=== PATIENT | male | born 1975 | race Caucasian/White ===

== ENCOUNTER 2024-04-17 16:50 | Emergency (ER) | payer OTHER, SELFPAY ==
--- NOTE | ~2024-04-17 | XR_ITS ---
EXAMINATION: XR abdomen/kub 1V DATE: 04/17/2024 17:37 INDICATION: Left groin pain TECHNIQUE: A supine view of the abdomen on 2 radiographs was obtained. COMPARISON: None. FINDINGS: Normal bowel gas pattern with moderate amount of stool scattered throughout the colon. No dilated loo ps of gas-filled bowel to suggest obstruction. Small left sided and tiny right sided phleboliths in t he pelvis. Lung bases are clear. Heart size normal conifer AP technique. Slight lumbar dextrocurvatur e with moderate spondylosis. IMPRESSION: 1. Normal bowel gas pattern. Reviewed, dictated and finalized at location A.
[2024-04-17 16:56] VITALS: BP 113/71; PULSE 105; RESP 20; TEMP 37.3; O2SAT 98
--- NOTE | 2024-04-17 17:17 | ED.GENADULT ---
HPI - General Adult General Chief complaint: Abdominal Pain Stated complaint: left side groin pain Time Seen by Provider: 04/17/24 17:10 Source: patient, RN notes reviewed and old records reviewed Mode of arrival: ambulatory Limitations: no limitations History of Present Illness HPI narrative: 49 year old male presents to [facility] care with complaints of left sided groin pain which started yesterday evening. Patient reports that he had previous lower left inguinal hernia repair in 2007. Patient reports no difficulty with urination or an problems with bowel movements, states last bowel movement this afternoon and normal. Patient denies any known injury. He works as [employer] and does lift heavy object at work.Patient has noted pain to the left lower abdominal quadrant in left upper groin region, no bulging noted in area on examination. MD complaint: left groin pain Onset (ago): day(s) (started yesterday evening) Location: pelvis (left lower abdomen and groin) Severity: mild Treatments prior to arrival: none Related Data Home Medications Medication Instructions Recorded Confirmed No Home Medications 04/17/24 04/17/24 Allergies Allergy/AdvReac Type Severity Reaction Status Date / Time No Known Drug Allergies Allergy Unknown Unknown Verified 04/17/24 17:21 Review of Systems Review of Systems: CONSTITUTIONAL: Denies fever, chills, or sweats. EYES: Denies visual changes, redness, or discharge. ENT: Denies rhinorrhea, congestion, sore throat, or otalgia. CARDIOVASCULAR: Denies chest pain, palpitations, or edema. RESPIRATORY: Denies cough or dyspnea. GASTROINTESTINAL: Reports pain in left lower abdomen in left upper groin area, no nausea, vomiting, or diarrhea. GENITOURINARY: Denies dysuria or hematuria. SKIN: Denies rash or itching. MUSCULOSKELETAL: Denies any acute back pain, joint pain, or myalgia. NEUROLOGIC: Denies headache, numbness, or weakness. PSYCHIATRIC: Denies anxiety or depression. All systems reviewed & are unremarkable except as noted in HPI and below [facility] Past Medical History Medical History (Updated 04/19/24 @ 07:50 by Loren Chun NP) Back pain Bilateral varicoceles Epididymitis GERD (gastroesophageal reflux disease) Pneumonia LLL 2011 Surgical History Surgical History (Updated 04/19/24 @ 07:48 by Loren Chun NP) H/O left inguinal hernia repair History of arthroscopy of left shoulder Social History Social History (Updated 04/19/24 @ 07:46 by Loren Chun NP) Smoking packs per day: 1 Smoking cigarettes per day: 20.0 Smoking status: Current every day smoker Tobacco type: cigarettes Alcohol intake: current Alcohol use details: social Substance use type: does not use Living arrangements: with family Additional occupation/education comments: [employer] Gender identity (if verbalized by the patient): Male Comments At time of signature, agree with nursing past medical, surgical, social and family history. There is no relevant family history pertinent to the presenting complaint Exam Narrative: GENERAL: Well-appearing, well-nourished, and in no acute distress. HEAD: Normocephalic, atraumatic. EYES: PERRLA and EOMI. ENT: Nares clear, no rhinorrhea or epistaxis. Mucous membranes moist. NECK: Supple.no lymphadenopathy CHEST: Clear to auscultation. No respiratory distress. no cough noted SAO2 98% on room air HEART: Regular rate and rhythm. No murmur heard. Normal peripheral pulses. ABDOMEN: Soft, tender on palpation to left lower abdomen upper groin region with no bulging noted in area, nondistended, normal active bowel sounds, no difficulty passing urine or stools EXTREMITIES: Normal range of motion. No edema. SKIN: Warm, dry, no rash. NEURO: No focal deficits. Alert and oriented x3. Course Course Emergency Course: Patient is aware of diagnosis, understands and agrees to treatment plan.? Anticipatory guidance given.? Patient agrees to follow-up a
== END 2024-04-17 18:30 | disposition home or self-care (01) ==
PROVIDERS: Emergency Provider Registered Nurse
DX: R10.32 Left lower quadrant pain (principal); F17.210 Nicotine dependence, cigarettes, uncomplicated; K21.9 Gastro-esophageal reflux disease without esophagitis
CPT/HCPCS: 74018; 99213; G0463

== ENCOUNTER 2024-09-17 03:38 | Day surgery (SDC) | payer OTHER, SELFPAY ==
[2024-09-04 14:51] VITALS: BMI 33.1
[2024-09-17 08:19] VITALS: BP 141/83; PULSE 90; RESP 20; TEMP 35.5; O2SAT 100; BMI 33.5
[2024-09-17] MEDS: LACTATED RINGERS 1,000 ML 150 ML IV CONT (08:28)
--- NOTE | 2024-09-17 09:12 | PM.IMHP ---
H&P: HPI History of Present Illness Date/Time: 09/17/24 09:12 Chief Complaint: GERD - colon cancer screening Narrative: This patient has been suffering from heartburn for several years, he is currently taking Nexium every morning. Despite going to bed at least 4 hours after his last meal, he frequently has nighttime episodes of regurgitation and heartburn. There is no dysphagia. This occurs at least 3 times a week. He has never had an endoscopy. In addition, he is also here for his 1st screening colonoscopy. There is no family history of colorectal cancer. Review of Systems Review of Systems: All systems reviewed & are unremarkable except as noted in HPI and below PMFSH Past Medical History Medical History (Updated 09/17/24 @ 09:15 by Mack San MD) Back pain Bilateral varicoceles Epididymitis GERD (gastroesophageal reflux disease) Pneumonia LLL 2011 Surgical History Surgical History (Updated 04/19/24 @ 07:48 by Loren Chun NP) H/O left inguinal hernia repair History of arthroscopy of left shoulder Social History Social History (Updated 04/19/24 @ 07:46 by Loren Chun NP) Smoking packs per day: 1 Smoking cigarettes per day: 20.0 Years smoked: 40 Smoking pack-years: 40.00 Smoking status: Current every day smoker Tobacco type: cigarettes Alcohol intake: never Alcohol use details: social Substance use: never Substance use type: does not use Living arrangements: with family Additional occupation/education comments: [employer] Gender identity (if verbalized by the patient): Male Spiritual care concerns: No Meds Home Medications and Allergies Home Medications Medication Instructions Recorded Confirmed Type calcium carbonate (Tums) 200 mg PO HS 09/17/24 09/17/24 History esomeprazole magnesium 20 mg 20 mg PO DAILY 09/17/24 09/17/24 History capsule,delayed release (Nexium) Allergies Allergy/AdvReac Type Severity Reaction Status Date / Time No Known Drug Allergies Allergy Unknown Unknown Verified 09/17/24 08:17 Vital Signs Vital Signs - 24 hr 09/17/24 08:19 Temperature 96 F L Pulse Rate 90 Respiratory Rate 20 Blood Pressure 141/83 H Pulse Oximetry 100 Oxygen Delivery Room Air Assessment and Plan Assessment and plan (1) Screening for malignant neoplasm of colon: Code(s): Z12.11 - Encounter for screening for malignant neoplasm of colon Status: Acute Plan The patient is deemed a good candidate for the procedures, EGD and colonoscopy . Consent signed. Will proceed.
--- NOTE | 2024-09-17 09:30 | SUR.PREOP ---
Spoke at length with the office and the patient in regards to insurance giving approval for the EGD. The office RAYMOND Mann stated that the EGD is covered and we are okay to proceed with procedure.
--- NOTE | 2024-09-17 09:52 | P.PNAN_ITS ---
Anes - Initial Pre Proc Eval Procedure: Operation Date: 09/17/24 09:30 Proposed Procedures p Screening Colonoscopy - Mack San MD s Esophagogastroduodenoscopy - Mack San MD Date/Time: 09/17/24 09:52 Surgeon: Mack San MD Pre Op Diagnosis: Neoplasm Screening Patient Data Age: 49 Gender: M Height: 1.85 m Weight: 115.1 kg Last Vital Signs Temp 96 F L 09/17/24 08:19 Pulse 90 09/17/24 08:19 Resp 20 09/17/24 08:19 BP 141/83 H 09/17/24 08:19 Pulse Ox 100 09/17/24 08:19 O2 Del Method Room Air 09/17/24 08:19 Allergies Allergy/AdvReac Type Severity Reaction Status Date / Time No Known Drug Allergies Allergy Unknown Unknown Verified 09/17/24 08:17 Home Medications Medication Instructions Recorded Confirmed Type calcium carbonate (Tums) 200 mg PO HS 09/17/24 09/17/24 History esomeprazole magnesium 20 mg 20 mg PO DAILY 09/17/24 09/17/24 History capsule,delayed release (Nexium) Patient hx anesthesia problems: none Family hx anesthesia problems: none Results Review: All pre-operative results and documents have been reviewed as part of the pre- operative evaluation. [facility] Past Medical History Medical History Back pain Bilateral varicoceles Epididymitis GERD (gastroesophageal reflux disease) Pneumonia LLL 2011 Surgical History Surgical History H/O left inguinal hernia repair History of arthroscopy of left shoulder Social History Social History Smoking packs per day: 1 Smoking cigarettes per day: 20.0 Years smoked: 40 Smoking pack-years: 40.00 Smoking status: Current every day smoker Tobacco type: cigarettes Alcohol intake: never Alcohol use details: social Substance use: never Substance use type: does not use Living arrangements: with family Additional occupation/education comments: [employer] Gender identity (if verbalized by the patient): Male Spiritual care concerns: No Anes - Eval Final PreProcedure Day of Procedure 09/17/24 09:52 Patient weight: normal Heart: regular rate and rhythm Lungs: clear to auscultation Airway: Mallampati scale Neurological: alert and oriented Last oral intake: >/= 8 hours ASA classification: II Emergent: no Anesthetic plan: proceed Anesthesia type and monitoring: general GIVS and standard monitoring Results Review: All pre-operative results and documents have been reviewed as part of the pre- operative evaluation. Smoker 1ppd, smoked approx 8-9 am . Informed Consent: The patient's anesthetic plan and its attendant risks and benefits were discussed with the patient/family/POA. Questions were solicited and answers provided to the satisfaction of the patient/family/POA.
--- NOTE | 2024-09-17 10:12 | SUR.OPER ---
EGD: [id number] COLON:[id number]
[2024-09-17 10:38] VITALS: BP 103/70; PULSE 81; RESP 19; O2SAT 96
[2024-09-17 10:48] VITALS: BP 134/84; PULSE 79; RESP 17; O2SAT 98
[2024-09-17 10:58] VITALS: BP 133/85; PULSE 79; RESP 21; O2SAT 98
== END 2024-09-17 11:20 | disposition home or self-care (01) ==
PROVIDERS: Visit Provider Internal Medicine Gastroenterology
PROC: 0DJD8ZZ Inspection of Lower Intestinal Tract, Via Natural or Artificial Opening Endoscopic (ICD-10-PCS; CPT 45378; principal; 2024-09-17 09:30)
PROC: 0DJ08ZZ Inspection of Upper Intestinal Tract, Via Natural or Artificial Opening Endoscopic (ICD-10-PCS; CPT 43235; 2024-09-17 09:30)
DX: Z12.11 Encounter for screening for malignant neoplasm of colon (principal); D12.2 Benign neoplasm of ascending colon; K57.30 Diverticulosis of large intestine without perforation or abscess without bleeding; K29.50 Unspecified chronic gastritis without bleeding; K44.9 Diaphragmatic hernia without obstruction or gangrene; K21.9 Gastro-esophageal reflux disease without esophagitis; F17.210 Nicotine dependence, cigarettes, uncomplicated; Z98.890 Other specified postprocedural states; Z87.438 Personal history of other diseases of male genital organs
CPT/HCPCS: 43239; 45385; 88305; J2003; J2704; J7120

== ENCOUNTER 2025-11-11 08:04 | Outpatient (CLI) | payer OTHER, SELFPAY ==
--- NOTE | ~2025-11-11 | CT_ITS ---
EXAMINATION:CT lung screening DATE: 11/11/2025 08:26 INDICATION: Screening TECHNIQUE: Computed tomography (CT) of the chest was performed without intravenous contrast. The dose-length product (DLP) was 310.68 mGy-cm. COMPARISON: None. FINDINGS: 2 mm subpleural left upper lobe anterior nodule image 38 series 4. 2 mm lateral subpleural nodule seen on image left upper lobe. 6 mm calcified granuloma in the left lung base. 2 mm calcified granuloma right lower lobe image 72. No highly suspicious nodules or masses. Centrilobular emphysematous changes in the upper lobes. Heart and great vessels appear within normal limits. No acute process seen in the visualized portions of the upper abdomen bony thorax or extrathoracic soft tissues. Diffuse degenerative changes in the thoracic spine. Para mild to moderately severe diffuse fatty infiltrative changes of the liver. IMPRESSION: 1. Radiographically benign appearing nodules. Lung RADS 2. Correlate with follow-up low-dose lung cancer screening chest CT in 12 months. 2. Other chronic findings as above. Reviewed, dictated and finalized at location A. [employer] IMPRESSION: 1. Radiographically benign appearing nodules. Lung RADS 2. Correlate with follo w-up low-dose lung cancer screening chest CT in 12 months. 2. Other chronic findings as above.
== END 2025-11-11 08:05 | disposition home or self-care (01) ==
LOC: MICIMG 08:05
PROVIDERS: PCP Family Medicine; Visit Provider Family Medicine
DX: Z12.2 Encounter for screening for malignant neoplasm of respiratory organs (principal); F17.200 Nicotine dependence, unspecified, uncomplicated; R91.8 Other nonspecific abnormal finding of lung field; M51.24 Other intervertebral disc displacement, thoracic region
CPT/HCPCS: 71271